=== PATIENT | male | born 1985 | race Caucasian/White ===

== ENCOUNTER 2018-04-27 16:43 | Inpatient (IN) | payer SELFPAY ==
--- NOTE | 2018-04-27 17:06 | ED ---
Psychiatric Complaint - HPI Summary HPI Summary: 32 y/o male presents to the ED c/o depression s/p suicidal attempt via cutting forearms last night. Pt has lacerations at bilateral forearms. Past medications reviewed. Pt recently stopped smoking "wax", for which he says he was prescribed for his PMHx Hodgkins lymphoma. This is scribe Ed Selene documenting for attending Naun Og MD. I, Dr. Og, personally performed the services described in this documentation as scribed in my presence and it is both accurate and complete. - History Of Current Complaint Chief Complaint: EDMentalHealth Hx Obtained From: Patient Onset/Duration: Still Present Timing: Constant Character: Depressed Aggravating Factor(s): Nothing Alleviating Factor(s): Nothing Associated Signs And Symptoms: Positive: Sleep Disturbance Has Suicidal: Reports: Thoughts, With A Plan, Demonstrates Gesture - Allergies/Home Medications Allergies/Adverse Reactions: Allergies Allergy/AdvReac Type Severity Reaction Status Date / Time No Known Allergies Allergy Verified 04/27/18 16:47 PMH/Surg Hx/FS Hx/Imm Hx Previously Healthy: No Endocrine/Hematology History: Denies: Hx Diabetes Opthamlomology History: Denies: Hx Legally Blind - Cancer History Cancer Type, Location and Year: hodgkins lymphoma Infectious Disease History: No Infectious Disease History: Denies: Traveled Outside the [place] in Last 30 Days - Family History Known Family History: Positive: Unknown - Social History Alcohol Use: Occasionally Hx Substance Use: Yes Substance Use Type: Reports: Marijuana - "wax" Hx Tobacco Use: Yes - e-cigarette Smoking Status (MU): Current Every Day Smoker Type: eCigarettes Review of Systems All Other Systems Reviewed And Are Negative: Yes Physical Exam - Summary Physical Exam Summary: VITAL SIGNS: Reviewed. GENERAL: Patient is a well-developed and nourished male who is lying comfortable in the stretcher. Patient is not in any acute respiratory distress. HEAD AND FACE: No signs of trauma. No ecchymosis, hematomas or skull depressions. No sinus tenderness. EYES: PERRLA, EOMI x 2, No injected conjunctiva, no nystagmus. EARS: Hearing grossly intact. Ear canals and tympanic membranes are within normal limits. MOUTH: Oropharynx within normal limits. NECK: Supple, trachea is midline, no adenopathy, no JVD, no carotid bruit, no c- spine tenderness, neck with full ROM. CHEST: Symmetric, no tenderness at palpation LUNGS: Clear to auscultation bilaterally. No wheezing or crackles. CVS: Regular rate and rhythm, S1 and S2 present, no murmurs or gallops appreciated. ABDOMEN: Soft, non-tender. No signs of distention. No rebound no guarding, and no masses palpated. Bowel sounds are normal. EXTREMITIES: FROM in all major joints, no edema, no cyanosis or clubbing. Pt has superficial lacerations at both forearms - 7 cm on each side, inflicted yesterday. NEURO: Alert and oriented x 3. No acute neurological deficits. Speech is normal and follows commands. SKIN: Dry and warm Vital Signs On Initial Exam: Initial Vitals Temp Pulse Resp BP Pulse Ox 99.5 F 114 18 147/91 96 04/27/18 16:46 04/27/18 16:46 04/27/18 16:46 04/27/18 16:46 04/27/18 16:46 Diagnostics - Vital Signs Vital Signs Temp Pulse Resp BP Pulse Ox 04/27/18 16:46 99.5 F 114 18 147/91 96 - Laboratory Result Diagrams: 04/27/18 17:09 04/27/18 17:09 Lab Statement: Any lab studies that have been ordered have been reviewed, and results considered in the medical decision making process. Course/Dx - Course Assessment/Plan: Bloodwork without any significant abnormalities. Alcohol 133. Positive for marijuana. Pt medically cleared awaiting [facility]. Pt signed out to Dr. Thompson for f/u [facility]. - Differential Dx/Clinical Impression Differential Diagnosis/HQI/PQRI: Positive: Anxiety, Suicidal Ideation Provider Diagnosis: Anxiety, Suicidal behavior Discharge - Sign-Out/Discharge Documenting (check all that apply): Sign-Out Patient Signing out patient TO: Shadia Thompson Receiving patient FROM: Naun Og - Discharge Plan Condition: Stable Disposition: PSYCHIATRIC FACILITY[place] [place] - Billing Disposition and Condition Condition: STABLE Disposition: Psychiatric Facility [facility] [place]
[2018-04-27] MEDS ORDERED: Tetan/Diph/Pertus SYR(Tdap)* 0.5 ML SYR(BOOSTRIX) use SYR IM ONE (17:15)
[2018-04-27 17:19] LABS: ABS Basophils 0.1 10^3/ul (0-0.2); ABS Eosinophils 0.1 10^3/ul (0-0.6); ABS Lymphocytes 3.9 10^3/ul (1.0-4.8); ABS Monocytes 0.9 10^3/ul (0-0.8); ABS Neutrophils 5.7 10^3/ul (1.5-7.7); ABS Nucleated RBC 0 10^3/ul; Eosinophil % 0.6 % (0-6); Hematocrit 44 % (42-52); Hemoglobin 15.4 g/dl (14.0-18.0); Lymphocyte % 36.8 % (25-47); Mean Corpuscular HGB Conc 35 g/dl (31-36); Mean Corpuscular Hemoglobin 32 pg (27-31); Mean Corpuscular Volume 92 fL (80-94); Mean Platelet Volume 6.6 um3 (7.4-10.4); Nucleated Red Blood Cells % 0.1; Platelet Count 373 10^3/ul (150-450); Red Blood Count 4.83 10^6/ul (4.00-5.40); Red Cell Distribution Width 14 % (10.5-15); White Blood Count 10.6 10^3/ul (3.5-10.8)
[2018-04-27 17:39] LABS: EGFR Non-African American 103.7 (>60)
[2018-04-27] MEDS ORDERED: Nicotine Inhaler* 10 MG AMP INH ONE (18:56)
[2018-04-27] MEDS ORDERED: Mouth Piece, Nicotine* 1 EACH CARTRIDGE ONE (18:58)
[2018-04-27] MEDS: Mouth Piece, Nicotine* 1 EACH CARTRIDGE INH PRN (19:01)
[2018-04-27 19:44] LABS: Urine Appearance Clear; Urine Blood Negative (Negative); Urine Color Yellow; Urine Ketones Trace (Negative); Urine Protein Negative (Negative); Urine Specific Gravity 1.016 (1.010-1.030); Urine Urobilinogen Negative (Negative)
[2018-04-27] MEDS ORDERED: hydrOXYzine HCL TAB* 50 MG PO ONE ×2 (19:48→23:57)
--- NOTE | 2018-04-27 21:56 | ED ---
Progress - Progress Note Progress Note: 2300: Per ASHLEIGH Booker, pt admitted by Dr. 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 Course/Dx - Provider Notifications Discussed Care Of Patient With: Rickie Zazueta Time Discussed With Above Provider: 23:00 Instructed by Provider To: Other - Per ASHLEIGH Booker, pt admitted by Dr. 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 Discharge - Sign-Out/Discharge Documenting (check all that apply): Patient Departure - admit - Discharge Plan Condition: Stable [place] [place]errals: No Primary Care Phys,NOPCP [Primary Care Provider] - - Billing Disposition and Condition Condition: STABLE Disposition: Psychiatric [place] [facility] [place] Attestation Statement User Type: Provider - IDr. Thompson personally performed the services described in this documentation as scribed in my presence and it is both accurate and complete.
[2018-04-27] MEDS ORDERED: chlorproMAZINE TAB* 50 MG PO ONE (22:55)
[2018-04-28] MEDS ORDERED: Nicotine Inhaler* 10 MG AMP ONE (00:05)
[2018-04-28] MEDS: Mouth Piece, Nicotine* 1 EACH CARTRIDGE INH PRN (00:11)
[2018-04-28] MEDS ORDERED: Mouth Piece, Nicotine* 1 EACH CARTRIDGE INH PRN (00:14)
[2018-04-28] MEDS ORDERED: Nicotine Inhaler* 10 MG AMP INH ONE (00:14)
[2018-04-28] MEDS ORDERED: Al Hydrox/Mg Hydrox/Simet LIQ* 30 ML UDC PO PRN (03:42)
[2018-04-28] MEDS ORDERED: Acetaminophen TAB* 325 MG PO PRN (03:42)
[2018-04-28] MEDS ORDERED: Mouth Piece, Nicotine* 1 EACH CARTRIDGE INH SCH (03:42)
[2018-04-28] MEDS: Vitamin THERAPEUTIC TAB PO SCH (09:42)
[2018-04-28] MEDS ORDERED: QUEtiapine TAB* 25 MG PO ONE (11:48)
[2018-04-28] MEDS ORDERED: hydrOXYzine HCL TAB* 50 MG PO PRN (11:50)
[2018-04-28] MEDS: Nicotine Inhaler* 10 MG AMP INH PRN ×2 (12:28→18:03)
[2018-04-28] MEDS ORDERED: LORazepam TAB(*) 1 MG PO PRN (12:30)
--- NOTE | 2018-04-28 13:20 | HP ---
H&P (Free Text) History and Physical: JUSTIFICATION FOR ADMISSION: Patient presented to emergency room with suicidal thoughts and self-injurious behavior, worsening depression and irritability with psychosis, intoxicated with alcohol and cannabis. He requires inpatient psychiatric admission in order to provide treatment and stabilization as he is a danger to himself. Source of Information: Patient and chart review CHIEF COMPLAINT: "I was not feeling good HISTORY OF THE PRESENT ILLNESS: Patient is a 32 y/o male, single, was living with his friend, employed as a [employer], with no history of formal psychiatric disorder but history of poly substance abuse. Patient recently moved from [place] about a month ago. Patient reportedly was abusing methamphetamine in [place] and was associated with a gang. Patient was having paranoid ideations towards others and the gang that they are after him and he moved to [place] to start a new life with his friend. Patient reportedly was working to keep himself busy. Patient continued to have paranoid ideations towards others and was feeling depressed and anxious. Patient also reported incident of elevated mood, decrease sleep, racing thoughts increase energy lasting for 2 days. Patient continued to use cannabis and reportedly exposed his private parts to his friend significant other. Patient was evicted by him and reportedly he got intoxicated from alcohol , was having suicidal thoughts and engaged in self injurious behavior (cutting his fore arm multiple times with a pocket knife) before presenting to E.D. Patient was admitted to inpatient unit for worsening of depression, low self- esteem, feelings of worthlessness, think of him as a failure, decreased sleep for about 3-4 hours at night. Patient has been on no outpatient treatment. Patient denied any suicidal or homicidal ideation on the unit. Patient continued to exhibit behavior that is in control, but isolative and withdrawn, staying to self, ambivalent about his treatment and intermittently appeared to be rejecting of help. PAST PSYCHIATRIC HISTORY: Patient reports of no inpatient psychiatric hospitalization. Patient reports no outpatient psychiatric treatment therapy or medications. Patient reports history of suicidal thoughts but no intent attempt or plan. Patient has no history of homicidal threats, intent or attempt. Patient has history of aggressive and agitated behavior when decompensates. Patient reports no access to firearms. SUBSTANCE ABUSE HISTORY: Patient has used methamphetamine and cannabis in the past for years. Patient also has used heroin and injected it once but did not like the experience. Urine toxicology was positive for cannabis and blood was positive for alcohol level. Last use was on the day presenting to [facility]. Patient reported having history of dependence on alcohol in the past but has using it occasionally 1-2x a week with friends until he got intoxicated on the night before hospitalization. Patient reported history of withdrawal tremors in the past from alcohol but did not require any medical attention. PAST MEDICAL HISTORY: Patient reports being diagnosed with Non Hodgkin Lymphoma in the past around age 15 but was treated and was in remission. No head trauma, seizure, high cholesterol, HTN, Diabetes or any other medical condition reported. ALLERGIES: [facility] FAMILY PSYCHIATRIC HISTORY: Patient reports his mother being depressed and was dependent on alcohol. Patient reports that her mother due to complication from alcohol abuse. Patient reported no suicide in the family. FAMILY/PSYCHOSOCIAL HISTORY: Patient recently moved from [place] about a month ago. Patient was living with his friend but currently homeless as he was evicted by his friend. Patient is single. Patient has no children. Patient education level is GED, dropped out in 12th grade for truancy. Patient was raised by his parents, his father remarried after his mother 2 years ago. Patient reports having good relationship with his father and step mother. Patient support system includes family and friends. REVIEW OF SYSTEMS: Patients review of symptoms was negative for any physical complaint. Patient vital signs are stable. Patients ED physical exam was reviewed which is grossly normal other than multiple laceration bilaterally on fore arm with no active medical problem. MENTAL STATUS EXAMINATION: Appearance: calm, lying on his bed, anxious, making intermittent eye contact, dressed casually, not in physical distress, did not appear to be in physiological withdrawal from alcohol. Behavior: superficially cooperative Gait: not assessed at this time Abnormal motor activity: none, no tremors Speech: low tone and volume mostly with loud and raised volume at times. Mood: not good Affect: dysphoric to irritable, constricted Thought process: goal directed and circumstantial at times Thought Content: Suicidal/Homicidal ideation: denied at this time Delusions: paranoid ideation Obsessions: none Phobia: none Perceptual disturbance: none Attention: fair Orientation: grossly intact Concentration: limited Memory: fair Insight: poor Judgment: poor Impulse control: poor as evident by recent history IMPRESSION: Patient with history of no formal psychiatric disorder but substance abuse including methamphetamine being his drug of choice with currently smoking wax/cannabis. Patient currently admitted due to worsening of depression, suicidal thought and self-injurious behavior. Patient has also struggled with recent move and being evicted from his friends place. Patient is a danger to self and others if discharged hence will be stabilized on inpatient unit with medication adjustments and therapy. DIAGNOSES: Mood Disorder unspecified, Cannabis induced psychosis, Cannabis Abuse, Alcohol intoxication, Methamphetamine dependence in remission Prov: Bipolar Disorder PLAN: Admit to [facility] on Q 15 min observation. Patient is full code. Patient is on involuntary admission status Integrate patient into the milieu Individual and group psychotherapy MMPI and psychological consult with Dr. Dean. Social work consult for therapy and discharge planning Will hold family meeting with parents to increase Data base. Patient was counseled on drug/alcohol use. Patient gave informed consent to start the following medications: Seroquel was started at 50mg HS with plan to titrate up and patient requested to be given one dose now hence was given 25 mg one dose now. Patient will be on Hydroxyzine 50mg Q6 HRS PRN as needed for anxiety. Patient is minimizing his symptoms and substance/alcohol usage, will keep Ativan 1 mg PO Q6HRS PRN alcohol withdrawal. Will continue to monitor and f/u for improvement and side effects. Jasvir Donohue MD Attending Psychiatrist
[2018-04-28] MEDS ORDERED: QUEtiapine TAB* 25 MG PO SCH (21:00)
[2018-04-28] MEDS: Bacitracin OINTMENT* 0.5% 0.5 oz TUBE TOPICAL SCH (21:02)
[2018-04-29] MEDS: Nicotine Inhaler* 10 MG AMP INH PRN ×5 (06:31→20:28)
[2018-04-29] MEDS: Vitamin THERAPEUTIC TAB PO SCH (10:01)
[2018-04-29] MEDS: Bacitracin OINTMENT* 0.5% 0.5 oz TUBE TOPICAL SCH ×2 (10:02→20:28)
--- NOTE | 2018-04-29 11:47 | PN ---
MHU: Group Therapy Note - Service Type Service Type: [id number] Group Psychotherapy - Cognitive Behavioral Group Therapy ( CBT):Patient was attentive and participatory in CBT programming this morning, and remained in good behavioral control. Patient expressed positive insights regarding relevant treatment interventions and goals.
[2018-04-29] MEDS: Nicotine GUM* 2 MG PO PRN ×2 (12:51→20:28)
--- NOTE | 2018-04-29 15:09 | PN ---
Subjective - Subjective Date of Service: 04/29/18 Service Type: [id number] Hosp care 15 min low complexity Subjective: Patient was seen by self, discussed with treatment team, chart was reviewed. Patient has been compliant with his medications, no reported side effects. Patient reports improvement in his symptoms of depression/irritability. Patient sleeping has been better Patient eating has been fair. Patient has been cooperative with staff. Patient behavior has been in control. Patient mood was less anxious and less dysphoric, reports improvement in racing thoughts, more out in the milieu, no delusions reported. Patient has been reporting no suicidal or homicidal ideation. No psychotic symptoms of delusions or hallucinations. Objective - Appearance Appearance: Healthy Appearing Dysmorphic Features: No Hygiene: Normal Grooming: Fairly Well Kept - Behavior Psychomotor Activities: Normal Exhibits Abnormal Movement: No - Attitude and Relatedness Attitude and Relatedness: Cooperative Eye Contact: Fair - Speech Quality: Unpressured Latencies: Normal Quantity: Terse - Mood Patient's Decription of Mood: "Okay" - Affect Observed Affect: Depressed Affect Consistent with: Dysphoria - Thought Process Patient's Thought Process: Goal Directed Thought Content: No Passive Wish, No Suicidal Planning, No Homicidal Ideation, No Paranoid Ideation - Sensorium Experiencing Hallucinations: No, Sensorium is Clear Type of Hallucinations: Visual: No, Auditory: No, Command: No - Level of Consciousness Level of Consciousness: Alert Orientation: Yes Intact, Yes Orientated to Time, Yes Orientated to Place, Yes Orientated to Person - Impulse Control Impulse Control: Intact - Insight and Judgement Insight and Judgement: Fair Assessment - Assessment Merits Inpatient Hospitalization: For Immediate Safety, For Stabilization, For Discharge Planning Inpatient DSM-V Dx: F39 Clinical Impression: Patient with history of no formal psychiatric disorder with heavy substance abuse. Patient currently admitted due to worsening of mood symptoms, abusing substance and alcohol intoxication with self injurious behavior. Patient has also been struggling adjusting with move from [place]. Patient is a danger to self if discharged hence medications are being adjusted and symptoms will be stabilized on inpatient. Plan - Plan Treatment Plan: Name: TAMMY MALLOY Birthdate: 1985 [id number] - Patient continues to be hospitalized due to recent self injurious behavior, alcohol intoxication, mood instability, and impulsivity. - Patient's medications were adjusted after informed consent with increment in scheduled Seroquel to help with mood and behavior. - Patient will be monitored for improvement and side effects. Risk and benefits were discussed. - Patient was encouraged to continue his participation in the milieu, group and individual therapy. Medications: Current Medications Acetaminophen (Tylenol Tab*) 650 mg PO Q4H PRN PRN Reason: PAIN or TEMP > 101 F Al Hydrox/Mg Hydrox/Simethicone (Maalox Plus*) 30 ml PO Q4H PRN PRN Reason: INDIGESTION Bacitracin (Bacitracin Ointment*) 1 applic TOPICAL BID [facility] Last Admin: 04/29/18 10:02 Dose: 1 applic Device (Nicotine Mouth Piece*) 1 each INH .USE WITH NICOTROL PRN PRN Reason: CRAVING Last Admin: 04/28/18 00:11 Dose: 1 each Device (Nicotine Mouth Piece*) 1 each INH .CARTRIDGE [facility] Hydroxyzine HCl (Atarax Tab*) 50 mg PO Q6H PRN PRN Reason: ANXIETY Lorazepam (Ativan Tab(*)) 1 mg PO Q6H PRN PRN Reason: alcohol withdrawal Multivitamins (Theragran Tab*) 1 tab PO DAILY [facility] Last Admin: 04/29/18 10:01 Dose: 1 tab Nicotine (Nicotine Inhaler*) 10 mg INH Q2H PRN PRN Reason: CRAVING Last Admin: 04/29/18 12:52 Dose: 10 mg Nicotine Polacrilex (Nicotine Gum*) 2 mg PO Q2H PRN PRN Reason: CRAVING Last Admin: 04/29/18 12:51 Dose: 2 mg Quetiapine Fumarate (Seroquel Tab*) 50 mg PO BEDTIME [facility] Last Admin: 04/28/18 21:03 Dose: 50 mg
--- NOTE | 2018-04-29 16:14 | PN ---
MHU: Group Therapy Note - Service Type Service Type: [id number] Group Psychotherapy - Medication Education Group: Patient was attentive and participatory in group, and remained in good behavioral control. Patient expressed positive insights regarding relevant treatment interventions. Patient stated understanding of material discussed and had appropriate questions.
[2018-04-29] MEDS ORDERED: QUEtiapine TAB* 100 MG PO SCH (21:00)
[2018-04-30] MEDS: Nicotine Inhaler* 10 MG AMP INH PRN ×5 (07:09→20:30)
[2018-04-30] MEDS: Nicotine GUM* 2 MG PO PRN ×4 (09:05→20:30)
[2018-04-30] MEDS: Vitamin THERAPEUTIC TAB PO SCH (09:05)
[2018-04-30] MEDS: Bacitracin OINTMENT* 0.5% 0.5 oz TUBE TOPICAL SCH ×2 (09:05→20:30)
--- NOTE | 2018-04-30 11:03 | PN ---
Subjective - Subjective Date of Service: 04/30/18 Service Type: [id number] Hosp care 15 min low complexity Subjective: Patient was seen by self, discussed with treatment team, chart was reviewed. Patient has been compliant with his medications, no reported side effects. Patient reports improvement in his symptoms of depression/irritability but was somewhat elevate today. Patient sleeping has been better and improving as per patient. Patient eating has been fair. Patient has been cooperative with staff. Patient behavior has been in control. Patient was requesting staff pass and his level of observation to be reduced to Q30 minutes. Patient mood was less anxious and reports improvement in racing thoughts, more out in the milieu, no delusions reported. Patient has been reporting no suicidal or homicidal ideation. Patient MMPI results exhibited some elevation in paranoia and manic process but koby delusions or hallucinations reported at this time. Patient is motivated to complete a 2 year program in [place] and is also in the process to be referred to that program. Objective - Appearance Appearance: Healthy Appearing Dysmorphic Features: No Hygiene: Normal Grooming: Fairly Well Kept - Behavior Psychomotor Activities: Normal Exhibits Abnormal Movement: No - Attitude and Relatedness Attitude and Relatedness: Cooperative Eye Contact: Fair - Speech Quality: Unpressured Latencies: Normal Quantity: Appropriate - Mood Patient's Decription of Mood: "Good" - Affect Observed Affect: Euphoric Affect Consistent with: Euphoria - Thought Process Patient's Thought Process: Coherent Thought Content: No Passive Wish, No Suicidal Planning, No Homicidal Ideation, No Paranoid Ideation - Sensorium Experiencing Hallucinations: No, Sensorium is Clear Type of Hallucinations: Visual: No, Auditory: No, Command: No - Level of Consciousness Level of Consciousness: Alert Orientation: Yes Intact, Yes Orientated to Time, Yes Orientated to Place, Yes Orientated to Person - Impulse Control Impulse Control: Intact - Insight and Judgement Insight and Judgement: Fair - Group Participation Particating in Group Activities: Yes - Medication Management Medication Management Adherence: Yes Assessment - Assessment Merits Inpatient Hospitalization: For Immediate Safety, For Stabilization, For Discharge Planning Inpatient DSM-V Dx: F39 Clinical Impression: Patient with history of no formal psychiatric disorder with heavy substance abuse. Patient currently admitted due to worsening of mood symptoms, abusing substance and alcohol intoxication with self injurious behavior. Patient has also been struggling adjusting with move from [place]. Patient is a danger to self if discharged hence medications are being adjusted and symptoms will be stabilized on inpatient. Plan - Plan Treatment Plan: Name: TAMMY MALLOY Birthdate: 1985 [id number] - Patient continues to be hospitalized due to recent self injurious behavior, alcohol intoxication, mood instability, and impulsivity. - Patient's medications were adjusted after informed consent with increment in scheduled Seroquel to 150 mg HS as patient was opposed to increment in the morning as that makes him sedated during the day and limits his participation in the groups. - Patient's level of observation and staff was discussed in team meeting and patient has been reportedly in control and following staffs instructions, hence it was granted to the patient. - Patient will be monitored for improvement and side effects. Risk and benefits were discussed. - Patient was encouraged to continue his participation in the milieu, group and individual therapy. Medications: Current Medications Acetaminophen (Tylenol Tab*) 650 mg PO Q4H PRN PRN Reason: PAIN or TEMP > 101 F Al Hydrox/Mg Hydrox/Simethicone (Maalox Plus*) 30 ml PO Q4H PRN PRN Reason: INDIGESTION Bacitracin (Bacitracin Ointment*) 1 applic TOPICAL BID [facility] Last Admin: 04/30/18 09:05 Dose: Not Given Device (Nicotine Mouth Piece*) 1 each INH .USE WITH NICOTROL PRN PRN Reason: CRAVING Last Admin: 04/28/18 00:11 Dose: 1 each Device (Nicotine Mouth Piece*) 1 each INH .CARTRIDGE COUNT INCLUDES [facility] Hydroxyzine HCl (Atarax Tab*) 50 mg PO Q6H PRN PRN Reason: ANXIETY Multivitamins (Theragran Tab*) 1 tab PO DAILY [facility] Last Admin: 04/30/18 09:05 Dose: 1 tab Nicotine (Nicotine Inhaler*) 10 mg INH Q2H PRN PRN Reason: CRAVING Last Admin: 04/30/18 09:06 Dose: 10 mg Nicotine Polacrilex (Nicotine Gum*) 2 mg PO Q2H PRN PRN Reason: CRAVING Last Admin: 04/30/18 09:05 Dose: 2 mg Quetiapine Fumarate (Seroquel Tab*) 150 mg PO BEDTIME COUNT INCLUDES [facility]
--- NOTE | 2018-04-30 11:38 | PN ---
MHU: Group Therapy Note - Service Type Service Type: [id number] Group Psychotherapy - Cognitive Behavioral Group Therapy ( CBT):Patient was attentive and participatory in CBT programming this morning, and remained in good behavioral control. Patient expressed positive insights regarding relevant treatment interventions and goals.
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
[2018-04-30] MEDS ORDERED: QUEtiapine TAB* 100 MG PO SCH (21:00)
[2018-05-01] MEDS: Nicotine Inhaler* 10 MG AMP INH PRN ×6 (07:59→20:55)
[2018-05-01] MEDS: Vitamin THERAPEUTIC TAB PO SCH (09:45)
[2018-05-01] MEDS: Nicotine GUM* 2 MG PO PRN ×5 (09:45→20:55)
[2018-05-01] MEDS: Bacitracin OINTMENT* 0.5% 0.5 oz TUBE TOPICAL SCH ×2 (09:45→20:51)
[2018-05-01] MEDS: QUEtiapine TAB* 100 MG PO SCH (20:50)
[2018-05-02] MEDS: Nicotine GUM* 2 MG PO PRN ×6 (06:55→21:35)
[2018-05-02] MEDS: Nicotine Inhaler* 10 MG AMP INH PRN ×6 (06:55→21:35)
[2018-05-02] MEDS: Vitamin THERAPEUTIC TAB PO SCH (09:35)
[2018-05-02] MEDS: Bacitracin OINTMENT* 0.5% 0.5 oz TUBE TOPICAL SCH ×2 (09:36→22:25)
--- NOTE | 2018-05-02 19:00 | PN ---
Subjective - Subjective Subjective: Dima reports that higher dose of Seroquel made him feel twitchy at night and hungover in the morning and that he lowered the dose back. He endorses improved sleep, mood, avidly denies SI/HI and contracts for safety. He reports plan to go to a alf drug rehabilitation program in [place] after discharge. Per staff, he has been adherent to unit's routines. Objective - Appearance Appearance: Healthy Appearing Dysmorphic Features: No Hygiene: Normal Grooming: Well Kept - Behavior Psychomotor Activities: Normal Exhibits Abnormal Movement: No - Attitude and Relatedness Attitude and Relatedness: Cooperative Eye Contact: Fair - Speech Quality: Unpressured Latencies: Normal Quantity: Appropriate - Mood Patient's Decription of Mood: "Okay" - Affect Observed Affect: Good Affect Consistent with: Euthymia - Thought Process Patient's Thought Process: Coherent, Goal Directed Thought Content: No Passive Wish, No Suicidal Planning, No Homicidal Ideation, No Paranoid Ideation - Sensorium Experiencing Hallucinations: No, Sensorium is Clear - Level of Consciousness Level of Consciousness: Alert Orientation: Yes Intact - Impulse Control Impulse Control: Intact - Insight and Judgement Insight and Judgement: Fair - Group Participation Particating in Group Activities: Yes - Medication Management Medication Management Adherence: Yes Assessment - Assessment Merits Inpatient Hospitalization: Consolidate Improvements, For Discharge Planning Inpatient DSM-V Dx: F39 Clinical Impression: Stabilizing in this structured setting, gaining insight, remains motivated for substance abuse treatment. Plan - Plan Treatment Plan: Name: TAMMY MALLOY Birthdate: 1985 [id number] Medications: Current Medications Acetaminophen (Tylenol Tab*) 650 mg PO Q4H PRN PRN Reason: PAIN or TEMP > 101 F Al Hydrox/Mg Hydrox/Simethicone (Maalox Plus*) 30 ml PO Q4H PRN PRN Reason: INDIGESTION Bacitracin (Bacitracin Ointment*) 1 applic TOPICAL BID VANIA Last Admin: 05/02/18 09:36 Dose: Not Given Device (Nicotine Mouth Piece*) 1 each INH .USE WITH NICOTROL PRN PRN Reason: CRAVING Last Admin: 04/28/18 00:11 Dose: 1 each Device (Nicotine Mouth Piece*) 1 each INH .CARTRIDGE VANIA Hydroxyzine HCl (Atarax Tab*) 50 mg PO Q6H PRN PRN Reason: ANXIETY Multivitamins (Theragran Tab*) 1 tab PO DAILY [facility] Last Admin: 05/02/18 09:35 Dose: 1 tab Nicotine (Nicotine Inhaler*) 10 mg INH Q2H PRN PRN Reason: CRAVING Last Admin: 05/02/18 17:30 Dose: 10 mg Nicotine Polacrilex (Nicotine Gum*) 2 mg PO Q2H PRN PRN Reason: CRAVING Last Admin: 05/02/18 17:30 Dose: 2 mg Quetiapine Fumarate (Seroquel Tab*) 100 mg PO BEDTIME [facility] Last Admin: 05/01/18 20:50 Dose: 100 mg - Discharge Plan Discharge Plan: Drug/Alcohol Rehab Outpatient Program: [facility]
[2018-05-02] MEDS: QUEtiapine TAB* 100 MG PO SCH (21:31)
[2018-05-03] MEDS: Nicotine GUM* 2 MG PO PRN ×3 (07:14→12:26)
[2018-05-03] MEDS: Nicotine Inhaler* 10 MG AMP INH PRN ×3 (07:14→12:26)
[2018-05-03 08:15] VITALS: BP 130/76
[2018-05-03] MEDS: Vitamin THERAPEUTIC TAB PO SCH (10:22)
[2018-05-03] MEDS: Bacitracin OINTMENT* 0.5% 0.5 oz TUBE TOPICAL SCH (10:26)
--- NOTE | 2018-05-03 11:43 | PN ---
[facility]: Group Therapy Note - Service Type Service Type: 45629 Group Psychotherapy - Cognitive Behavioral Group Therapy ( CBT):Patient was attentive and participatory in CBT programming this morning, and remained in good behavioral control. Patient expressed positive insights regarding relevant treatment interventions and goals.
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
== END 2018-05-03 14:00 | disposition home or self-care (01) | DRG 885 ==
LOC: ED 16:43 → BSU 04-28 02:32
PROVIDERS: ADMIT Psychiatry & Neurology Psychiatry; ATTEND Psychiatry & Neurology Psychiatry
DX: F39 Unspecified mood [affective] disorder (principal); F10.129 Alcohol abuse with intoxication, unspecified; F12.159 Cannabis abuse with psychotic disorder, unspecified; Y90.6 Blood alcohol level of 120-199 mg/100 ml; F15.21 Other stimulant dependence, in remission; Z85.72 Personal history of non-Hodgkin lymphomas; Z81.1 Family history of alcohol abuse and dependence; Z81.8 Family history of other mental and behavioral disorders
CPT/HCPCS: 36415; 80053; 80061; 80307; 80320; 80329; 81003; 83036; 84443; 85025; 90715; 90853; 96102; 99222; 99231; 99238; 99284; A9270-GY; G0480